=== PATIENT | female | born 1960 | race Caucasian/White ===

== ENCOUNTER → 2020-04-22 08:39 | Outpatient (CLI) | payer OTHER, SELFPAY ==
[2020-04-22 10:21] LABS: Cancer Antigen 125 < 5.5 U/mL (0-35)
[2020-04-25 10:07] LABS: Human Epididymis Prot 4 47.9 pmol/L (0.0-105.2)
== END ==
PROVIDERS: PCP Specialist; Referring Provider Specialist; Visit Provider Specialist
DX: N83.291 Other ovarian cyst, right side (principal)
CPT/HCPCS: 36415; 86304; 86305